=== PATIENT | female | born 1990 | race Hispanic/Latino ===

== ENCOUNTER 2017-04-25 17:42 | Emergency (ER) | payer MEDICAID, OTHER, SELFPAY ==
[2017-04-25 19:02] LABS: #Basophils 0.1 thou/uL (0.0-0.2); #Eosinphils 0.3 thou/uL (0.0-0.7); #Monocytes 0.5 thou/uL (0.11-0.59); #Neutrophils 4.1 thou/uL (1.40-6.50); %Basophils 0.8 % (0.0-1.0); %Eosinophils 4.7 % (0.0-10.0); %Lymphocytes 28.9 % (21.0-51.0); %Monocytes 6.7 % (0.0-10.0); Hemoglobin 10.6 g/dL (12.0-16.0); Mean Corpuscular Volume 87.3 fl (81.0-99.0); Mean Platelet Volume 6.4 fL (7.4-10.4); Platelet Count 373 thou/uL (130-400); RBC Distribution Width 15.1 % (11.5-14.5); Red Blood Cell (RBC) Count 3.78 mill/uL (4.20-5.40); White Blood Cell (WBC) Count 6.9 thou/uL (4.8-10.8)
[2017-04-25 19:09] LABS: BHCG - Serum Negative (NEGATIVE); Pregs Control Background? CLEAR/WHITE (CLR/WHITE); Pregs Control Bar Appear? YES (CONTROL BAR)
[2017-04-29 00:33] LABS: Chlamydia by PCR Not Detected (NotDetected); GC by PCR Not Detected (NotDetected)
== END 2017-04-25 22:46 | disposition home or self-care (01) ==
LOC: ERS 17:42
DX: N93.8 Other specified abnormal uterine and vaginal bleeding (principal); Z79.899 Other long term (current) drug therapy
CPT/HCPCS: 36415; 84703; 85025; 87491; 87591; 99284

== ENCOUNTER 2017-09-17 23:18 | Emergency (ER) | payer SELFPAY ==
[2017-09-18 00:01] LABS: #Basophils 0.1 thou/uL (0.0-0.2); #Eosinphils 0.3 thou/uL (0.0-0.7); #Lymphocytes 3.3 thou/uL (1.20-3.40); #Monocytes 0.5 thou/uL (0.11-0.59); #Neutrophils 3.7 thou/uL (1.40-6.50); %Basophils 1.1 % (0.0-1.0); %Eosinophils 3.6 % (0.0-10.0); %Monocytes 6.1 % (0.0-10.0); %Neutrophils 47.2 % (42.0-75.0); Hemoglobin 10.6 g/dL (12.0-16.0); Mean Corpuscular HGB CONC 32.1 g/dL (32.0-36.0); Mean Corpuscular Hemoglobin 28.3 pg (27.0-31.0); Mean Corpuscular Volume 88.3 fl (81.0-99.0); Mean Platelet Volume 6.9 fL (7.4-10.4); Platelet Count 302 thou/uL (130-400); RBC Distribution Width 14.2 % (11.5-14.5); Red Blood Cell (RBC) Count 3.76 mill/uL (4.20-5.40); White Blood Cell (WBC) Count 7.7 thou/uL (4.8-10.8)
[2017-09-18 01:28] LABS: Bilirubin Negative (Negative); Blood, Urine Negative (Negative); Clarity CLEAR (Clear); Glucose, Urine (Dipstick) Negative (Negative); Leukocyte Moderate (Negative); Nitrite Negative (Negative); Protein, Urine (Dipstick) Negative (Neg-Trace); Specific Gravity, Urine 1.015 (1.002-1.036); pH, Urine 7.5 (5.0-9.0)
[2017-09-18 01:29] LABS: Bacteria/HPF 2+ HPF (None Seen); Hyaline Casts/LPF 4-6 HYALINE CAST LPF (0-3 Hyaline); Pathc Cast-AUWi Flag 0.72 (0-2.49); RBC/HPF 0-3 HPF (0-3); Squamous Epithelial 0-3 HPF (0-3)
--- NOTE | 2017-09-18 09:17 | ULT ---
PRELIMINARY REPORT/[facility]/EMERGENTY AFTER-HOURS PROCEDURE US Uterus, Limited CLINICAL HISTORY: 26 years old, female; first trimester gestational age: 5w 3d; intermittent spotting: Lower abd or pelvic pain / cramping, constipation b-hcg [id number] TECHNIQUE: Real-time ultrasound of the maternal uterus (limited) with image documentation. COMPARISON: No relevant prior studies available. FINDINGS: Single intrauterine gestational sac with external length measurement of 6.7 mm corresponding to a ges tational age of 5 weeks, 3 days. A yolk sac is present but no pole or heart beat is yet i dentified. No subchorionic hemorrhage. No free pelvic fluid. Sonographically normal ovaries. IMPRESSION: Single intrauterine gestational sac with external length measurement of 6.7 mm corresponding to a ges tational age of 5 weeks, 3 days. A yolk sac is present but no pole or heart beat is yet i dentified. No subchorionic hemorrhage. Thank you for allowing us to participate in the care of your patient. Dictated and Authenticated by: Bryson Hodges MD 09/18/2017 1:08 AM Central Time ([place] & [place]) FINAL REPORT PELVIC ULTRASOUND: Transabdominal and endovaginal ultrasound performed. A small gestational sac with measurements indica ting 5 week 4 day gestational age identified. No evidence of pole or yolk sac. Maternal ovaries are identified and appear unremarkable. Color doppler with spectral analysis demonstrates blood flow to both ovaries. I am in agreement with the preliminary report. POS: CHANDRA
== END 2017-09-18 03:05 | disposition home or self-care (01) ==
LOC: ERS 23:18
DX: O20.0 Threatened abortion (principal); O23.41 Unspecified infection of urinary tract in pregnancy, first trimester; O99.341 Other mental disorders complicating pregnancy, first trimester; F41.9 Anxiety disorder, unspecified; F32.9 Major depressive disorder, single episode, unspecified; Z87.891 Personal history of nicotine dependence; Z3A.01 Less than 8 weeks gestation of pregnancy
CPT/HCPCS: 36415; 76856; 81003; 81015; 84702; 85025; 86850; 86900; 86901; 87077; 87086; 87186

== ENCOUNTER 2018-01-08 18:26 | Day surgery (SDC) | payer OTHER ==
[2018-01-08 19:52] VITALS: BP 129/81; TEMP 98.1; BMI 20.7
--- NOTE | 2018-01-09 00:32 | PRG ---
DATE OF SERVICE: 01/08/2018 PRIMARY OB: Clinic. CHIEF COMPLAINT: Abdominal pains. HISTORY OF PRESENT ILLNESS: The patient is a 27-year-old female with an intrauterine at 21 weeks who is presenting with lower abdominal pains and came for evaluation. On our initial co ntact, the patient reports that she is fairly comfortable. I shared with her the busyness of our ser vice at this time and I was just making sure she did need immediate attention and asked if it was oka y with her that I catch up with some of the patient needs for coming to attend to her specifically I did share with the patient. I did not want have the patient monitored for a period of time. The pat ml expressed that this was okay. However, shortly after leaving the room, the patient reported dennis t she had to leave to get back to her children and left AMA without being clearly evaluated. PHYSICAL EXAMINATION: VITAL SIGNS: Blood pressure 101/55, heart rate of 82, respiratory rate of 18, satting 100% on room a ir, temperature 98.5. heart tracing was briefly obtained and in the 140s. Tocometer that we w ere able to monitor had no contractions. The patient is of leaving AMA without formal evaluation by myself.
== END 2018-01-08 20:20 | disposition home or self-care (01) ==
LOC: L&D/OP 18:26
PROVIDERS: ATTEND Obstetrics & Gynecology
DX: O99.89 Other specified diseases and conditions complicating pregnancy, childbirth and the puerperium (principal); R10.30 Lower abdominal pain, unspecified; Z3A.21 21 weeks gestation of pregnancy
CPT/HCPCS: 99282

== ENCOUNTER 2018-05-10 02:41 | Inpatient (IN) | payer OTHER ==
[2018-05-10] MEDS ORDERED: NS / Oxytocin 40 units/1000ml 1,000 ML IV PRN (03:08)
[2018-05-10] MEDS ORDERED: Lidocaine 1% (PF) 30 ML VIAL SC PRN (03:08)
[2018-05-10] MEDS ORDERED: Ibuprofen 800 MG TAB PO PRN (03:08)
[2018-05-10] MEDS ORDERED: Acetaminophen 500 MG TAB PO PRN (03:08)
[2018-05-10] MEDS ORDERED: Promethazine HCl 25 MG/ML VIAL IM PRN ×2 (03:08→03:38)
[2018-05-10] MEDS ORDERED: Misoprostol 200 MCG TAB PR PRN (03:08)
[2018-05-10] MEDS ORDERED: Ondansetron PF 4 MG/2 ML Vial IVP PRN ×3 (03:08→07:24)
[2018-05-10] MEDS ORDERED: Butorphanol Tartrate 1 MG/ML VIAL SLOW IVP PRN (03:08)
[2018-05-10] MEDS: Lactated Ringer's 1,000 ML IV SCH ×2 (03:15→05:00)
[2018-05-10] MEDS ORDERED: Fentanyl 4 mcg/Bup 0.1% Cadd 100 ML ONE (03:29)
[2018-05-10 03:33] VITALS: BMI 19.8
[2018-05-10] MEDS ORDERED: Hydrocerin (Eucerin) Cream 120 gm Jar TOP PRN (03:38)
[2018-05-10] MEDS ORDERED: diphenhydrAMINE 50 MG/ML VIAL IVP PRN (03:38)
[2018-05-10] MEDS ORDERED: Naloxone HCl 0.4 mg/ml Vial IVP PRN ×2 (03:38)
[2018-05-10] MEDS ORDERED: Lactated Ringer's 500 ML IV PRN (03:38)
[2018-05-10] MEDS ORDERED: Acetaminophen 325 MG TAB PO PRN (03:38)
[2018-05-10] MEDS ORDERED: ePHEDrine/0.9% NaCl/PF SYRINGE 50 mg/10 ml SLOW IVP PRN (03:38)
[2018-05-10 03:42] LABS: ALT (SGPT) 50 U/L (8-55); AST (SGOT) 36 U/L (5-34); Albumin 3.2 g/dL (3.5-5.0); Alkaline Phosphatase 280 U/L (40-150); Anion Gap 16 mmol/L (10-20); BUN (Urea Nitrogen) 13 mg/dL (7.0-18.7); Bilirubin, Total 0.3 mg/dL (0.2-1.2); Calc. Creatinine Clearance 92 mL/min (70-130); Calcium 8.7 mg/dL (7.8-10.44); Carbon Dioxide 19 mmol/L (22-29); Chloride 107 mmol/L (98-107); Estimated GFR-MDRD Greater than 90; Globulin 3.8 g/dL (2.4-3.5); Glucose 84 mg/dL (70-105); Potassium 4.5 mmol/L (3.5-5.1); Sodium 137 mmol/L (136-145)
[2018-05-10] MEDS ORDERED: Communication Order-Pharmacy FS SCH (03:45)
[2018-05-10] MEDS ORDERED: Fentanyl 4 mcg/Bupivacaine 0.1% Cassette 100 ML EPIDURAL SCH (03:45)
[2018-05-10 03:46] LABS: Mean Corpuscular Hemoglobin 19.7 pg (27.0-31.0); Mean Platelet Volume 9.6 fL (7.4-10.4); Platelet Count 608 thou/uL (130-400); RBC Distribution Width 20.3 % (11.5-14.5); Red Blood Cell (RBC) Count 4.05 mill/uL (4.20-5.40); White Blood Cell (WBC) Count 13.5 thou/uL (4.8-10.8)
--- NOTE | 2018-05-10 03:46 | PDOC.FPROB ---
FMR OB H&P: HPI - History of Present Illness Chief Complaint: contractions History of Present Illness: 27 yo at 39.6wks presents in active labor with painful contractions. SROM in the ED ~1 hour prior. States she has had four vaginal deliveries prior without complications. She has not been to the clinic in 3-4months. FMR OB H&P: Current - Care : 4 Para: 43 Gestational age: 39.6 Due date: 05/11/18 FMR OB H&P: History - Past Medical History PMH: none - OB History OB History: 3 prior SVDs - Surgical History Sx History: none - Social History Social History: unknown FMR OB H&P: Medications - Current Home Medications: Medication Instructions Recorded Confirmed Type No122/Iron/Folic Acid 1 tab PO DAILY 05/10/18 05/10/18 History [ Multi Tablet] Allergies/Adverse Reactions: Allergies Allergy/AdvReac Type Severity Reaction Status Date / Time No Known Allergies Allergy Verified 01/08/18 19:53 FMR OB H&P: ROS - Review of Systems General: denies: fever/chills, weight/appetite/sleep changes ENT: denies: nasal congestion, rhinorrhea Cardiovascular: denies: chest pain, palpitation Respiratory: denies: cough Gastrointestinal: denies: abdominal pain, indigestion Genitourinary (Female): reports: vaginal pain, contractions, vaginal pressure. denies: incontinence, dysuria Musculoskeletal: reports: pain Neurologic: denies: numbness, syncope Integumentary: denies: itching, rash Breast: denies: lumps, bumps Endocrine: denies: cold intolerance, heat intolerance Psychological: denies: depression, anxiety FMR OB H&P: Physical Exam - Physical Exam General: other (painful contractions) HEENT: normocephalic and atraumatic, PERRLA, MMM, grossly normal hearing Neck: supple, trachea midline General: other (no increased work of breathing) Abdomen: gravid Musculoskeletal: normal gait and station Skin: good tugor Psychiatric: intact recent and remote memory - Pelvic Exam Vulva: normal hair distribution SVE: 6/80/0 Presentation: vertex FMR OB H&P: Results - Labs Lab results: Laboratory Results - last 24 hr 05/10/18 03:12 Sodium 137 Potassium 4.5 Chloride 107 Carbon Dioxide 19 L Anion Gap 16 BUN 13 Creatinine 0.70 Estimated GFR (MDRD) Greater than 90 Glucose 84 Calcium 8.7 Total Bilirubin 0.3 AST 36 H ALT 50 Alkaline Phosphatase 280 H Serum Total Protein 7.0 Albumin 3.2 L Globulin 3.8 H Albumin/Globulin Ratio 0.8 L FMR OB H&P: A/P - Problem List (1) Term Current Visit: Yes Status: Acute Code(s): Z34.80 - ENCOUNTER FOR SUPRVSN OF NORMAL , UNSP TRIMESTER (2) Poor patient attendance of care Current Visit: Yes Status: Acute Code(s): O09.30 - SUPRVSN OF PREG W INSUFFICIENT ANTENAT CARE, UNSP TRIMESTER Discussion: Date/Time: 05/10/18 0343 27 yo @ 39.6wks by unknown dating presents to L&D with painful contractions admitted for active labor. #sIUP #active labor #poor prenantal care -Will admit to L&D. Stat labs ordered. Pt desires epidural. Anesthesia consulted. Cervical checks q2h or more frequent if indicated. Unknown GBS status. This H&P was discussed with Dr. Hector who agrees with the above documentation and plan. Addendum - Attending - Attending Attestation Date/Time: 05/10/18 3783 I personally evaluated the patient and discussed the management with Dr. Clements. I agree with the History, Examination, Assessment and Plan documented above.
[2018-05-10 04:01] LABS: HIV (1/2) Antibody/Antigen Non-Reactive (NonReactive); HIV 1/2 INDEX 0.11 S/CO (<1.00); Hep B Surf Ag Non-Reactive S/CO (NonReactive)
[2018-05-10] MEDS ORDERED: Lidocaine 1.5% w/Epi 1:200K 30 ML VIAL (Epid Use) ONE (04:01)
[2018-05-10 04:44] LABS: Syphilis Antibody Nonreactive (Nonreactive); Syphilis Antibody Index 0.09 S/CO (<1.00 Non-Reactive)
[2018-05-10 05:08] LABS: Amphetamine Not Detected (NotDetected); Barbiturates Screen Not Detected (NotDetected); Benzodiazepine Screen Not Detected (NotDetected); Cocaine Metabolite Screen Not Detected (NotDetected); Medtox Control Line Valid? VALID (VALID); Medtox Reader # READER 4; Methadone Not Detected (NotDetected); Methamphetamine Not Detected (NotDetected); Opiate Screen Not Detected (NotDetected); Oxycodone Screen Not Detected (NotDetected); Phencyclidine (PCP) Not Detected (NotDetected); THC/Cannabinoid Screen Not Detected (NotDetected); Tricyclic Screen Not Detected (NotDetected)
--- NOTE | 2018-05-10 06:29 | PDOC.OPDEL ---
OB Operative/Delivery Note Delivery Dr/Surgeon: Tyree Hall Assist: Attending: Krunal Pre-Delivery Diagnosis: active labor Procedure/Post Delivery Dx: spontaneous vaginal delivery Weeks gestation: 39 (39.6) Anesthesia: epidural - Findings A Sex: male - 1 min: 9 - 5 min: 9 - Additional Findings/Plan Placenta delivered: spontaneous Repaired Obstetrical Laceration: none Estimated blood loss: 208ml Compilations/Other Findings: Delivering Physician: Tyree Hall Attending: Krunal Procedure: Spontaneous Vaginal Delivery Anesthesia: epidural EBL:208ml Pre-op Diagnosis: 1. Term intrauterine in labor Post-op Diagnosis: 1. Term intrauterine , delivered Indications: A 27y/o female presents in active labor. Delivery Note: This is 27yo F @ 39.6wks who delivered a viable M infant at 0548. Following an uneventful antepartum course, a vigorous male was delivered over an intact perineum in the occipitoanterior position. Anterior Shoulder and then remainder of the body delivered. Nuchal cord X1. The head was held down and mouth and nares were bulb suctioned. Cord clamped and cut and cord blood collected. Placenta delivered intact with a 3 vessel cord noted. Fundal massage was performed and the fundus was firm. The cervix and vagina were inspected and found to be free of lacerations. Infant went to nursery in good condition for routine care. Apgars were 9/9 at 1 & 5 minutes, respectively. Patient tolerated delivery well and went to after routine recovery/care. Post delivery plan: routine recovery Addendum - Attending - Attending Attestation Date/Time: 05/11/182009 I was present for the entire delivery. Dee
[2018-05-10] MEDS ORDERED: Lanolin Ointment 7 GM TUBE TOP PRN (07:24)
[2018-05-10] MEDS ORDERED: Bisacodyl 10 MG SUPP PR PRN (07:24)
[2018-05-10] MEDS ORDERED: Methylergonovine 0.2 MG/ML VIAL IM PRN (07:24)
[2018-05-10] MEDS ORDERED: Adacel (T-DAP) 0.5 ML SYRINGE IM ONE (07:24)
[2018-05-10] MEDS ORDERED: Misoprostol 200 MCG TAB VAG PRN (07:24)
[2018-05-10] MEDS ORDERED: Preparation H Ointment 28 GM TUBE PR PRN (07:24)
[2018-05-10] MEDS ORDERED: NS / Oxytocin 40 units/1000ml 1,000 ML IV SCH (07:24)
[2018-05-10] MEDS ORDERED: Benzocaine/Menthol 20-0.5% 60 ML CAN TOP PRN (07:24)
[2018-05-10] MEDS ORDERED: Milk Of Magnesia 30 ML UDCUP PO PRN (07:24)
[2018-05-10] MEDS ORDERED: Methylergonovine 0.2 MG TAB PO PRN (07:24)
[2018-05-10] MEDS: Ferrous Sulfate 325 MG TAB PO SCH ×2 (10:16→17:11)
[2018-05-10] MEDS: Docusate Calcium (SURFAK) 240 MG CAP PO SCH ×2 (10:16→21:35)
[2018-05-10] MEDS: Prenatal Vitamin 1 TAB PO SCH (10:16)
[2018-05-10] MEDS: Ibuprofen 800 MG TAB PO SCH ×2 (10:21→17:11)
[2018-05-10] MEDS ORDERED: Bupivacaine HCl 0.5%/Epinephrine 1:200,000/PF 30 ml Vial ONE (11:11)
[2018-05-10 12:49] LABS: Hemoglobin 7.8 g/dL (12.0-16.0); Mean Corpuscular HGB CONC 29.9 g/dL (32.0-36.0); Mean Corpuscular Hemoglobin 20.5 pg (27.0-31.0); Mean Corpuscular Volume 68.6 fL (78.0-98.0); Mean Platelet Volume 9.6 fL (7.4-10.4); Platelet Count 537 thou/uL (130-400); RBC Distribution Width 20.3 % (11.5-14.5); Red Blood Cell (RBC) Count 3.82 mill/uL (4.20-5.40)
[2018-05-10 18:53] LABS: Hemoglobin 7.6 g/dL (12.0-16.0); Mean Corpuscular HGB CONC 28.6 g/dL (32.0-36.0); Mean Corpuscular Hemoglobin 19.6 pg (27.0-31.0); Mean Corpuscular Volume 68.5 fL (78.0-98.0); Mean Platelet Volume 9.5 fL (7.4-10.4); Platelet Count 530 thou/uL (130-400); RBC Distribution Width 20.4 % (11.5-14.5); Red Blood Cell (RBC) Count 3.88 mill/uL (4.20-5.40); White Blood Cell (WBC) Count 22.2 thou/uL (4.8-10.8)
[2018-05-11] MEDS: Ibuprofen 800 MG TAB PO SCH ×3 (01:13→15:21)
--- NOTE | 2018-05-11 06:02 | PDOC.PP ---
Post Progress Note Post Day #: 1 Subjective: 27 yoG4 now P4 PP day one sp . Pt without complaints. Scant lochia, urinating, ambulating, eating and drinking well. PO intake tolerated: yes Flatus: yes Ambulation: yes Vital Signs (12 hours) Temp Pulse Resp BP Pulse Ox 05/11/18 03:45 98.4 F 77 14 109/62 98 05/10/18 23:40 98.6 F 61 18 121/56 L 98 05/10/18 20:00 98.7 F 80 18 124/66 Weight Weight 47.627 kg - Physical Examination General: NAD Cardiovascular: no m/r/g, RRR Respiratory: clear to auscultation bilaterally, non-labored breathing Abdominal: + bowel sounds, lochia, no distention, appropriately TTP Extremities: negative homans (B) Neurological: no gross focal deficits Psychiatric: normal affect Result Diagrams: 05/10/18 18:17 05/10/18 03:12 Additional Labs: Post Labs Blood Type O POSITIVE 05/10/18 03:12 Hep Bs Antigen Non-Reactive S/CO (NonReactive) 05/10/18 03:12 (1) Term delivered Code(s): O80 - ENCOUNTER FOR FULL-TERM UNCOMPLICATED DELIVERY Status: Acute (2) Poor patient attendance of care Code(s): O09.30 - SUPRVSN OF PREG W INSUFFICIENT ANTENAT CARE, UNSP TRIMESTER Status: Acute - Assessment/Plan 1) TIUP, delivered - pt doing well w/o complaints - cont routine PP care - elaina dc home tomorrow after 48 hr obs - consult CM 2) Poor PNC - UDS neg - GBS unknown, obs baby 48 hrs for s/s infection - CM consulted Dispo: Stable, likely DC to home tomorrow
[2018-05-11] MEDS: Prenatal Vitamin 1 TAB PO SCH (08:11)
[2018-05-11] MEDS: Docusate Calcium (SURFAK) 240 MG CAP PO SCH (08:11)
[2018-05-11] MEDS: Ferrous Sulfate 325 MG TAB PO SCH (08:11)
[2018-05-11 09:04] VITALS: BP 120/70; TEMP 98.8
== END 2018-05-11 16:40 | disposition home or self-care (01) | DRG 807 ==
LOC: L&D/OP 02:41 → L&D 03:27 → 3SW 08:58
PROVIDERS: ADMIT Obstetrics & Gynecology; ATTEND Obstetrics & Gynecology
PROC: 10E0XZZ Delivery of Products of Conception, External Approach (ICD-10-PCS; principal; 2018-05-10)
DX: O69.81X0 Labor and delivery complicated by cord around neck, without compression, not applicable or unspecified (principal); Z37.0 Single live birth; Z3A.39 39 weeks gestation of pregnancy
CPT/HCPCS: 36415; 51702; 80053; 80306; 80307; 85027; 86762; 86780; 86850; 86900; 86901; 87340; 87389; 99285; J0670

== ENCOUNTER 2019-10-30 09:57 | Inpatient (IN) | payer OTHER ==
[2019-10-30] MEDS ORDERED: Methylergonovine 0.2 MG/ML VIAL IM PRN (10:14)
[2019-10-30] MEDS ORDERED: Ondansetron PF 4 MG/2 ML Vial IVP PRN ×3 (10:14→18:25)
[2019-10-30] MEDS ORDERED: Misoprostol 200 MCG TAB PR PRN (10:14)
[2019-10-30] MEDS ORDERED: Lidocaine 1% (PF) 30 ML VIAL SC PRN (10:14)
[2019-10-30] MEDS ORDERED: Carboprost 250 MCG/ML AMP IM PRN (10:14)
[2019-10-30] MEDS ORDERED: Diphenoxylate HCl/Atropine Tablet PO PRN ×2 (10:14)
[2019-10-30] MEDS ORDERED: Promethazine HCl 25 MG/ML VIAL IM PRN ×3 (10:14→18:25)
[2019-10-30] MEDS ORDERED: Ibuprofen 800 MG TAB PO PRN ×2 (10:14→16:31)
[2019-10-30] MEDS ORDERED: hydrALAZINE 20 MG/ML VIAL SLOW IVP PRN ×2 (10:14→18:25)
[2019-10-30] MEDS ORDERED: Penicillin G Potassium 5 MILL.UNITS VIAL ONE ×2 (10:21→10:22)
[2019-10-30] MEDS: Lactated Ringer's 1,000 ML IV SCH ×3 (10:25→13:20)
[2019-10-30] MEDS ORDERED: Fentanyl 4 mcg/Bup 0.1% Cadd 100 ML ONE (10:32)
[2019-10-30 10:48] LABS: Hemoglobin 8.5 g/dL (12.0-16.0); Mean Corpuscular HGB CONC 29.7 g/dL (32.0-36.0); Mean Corpuscular Hemoglobin 21.1 pg (27.0-31.0); Mean Corpuscular Volume 71.1 fL (78.0-98.0); Mean Platelet Volume 8.2 fL (7.4-10.4); Platelet Count 457 thou/uL (130-400); RBC Distribution Width 20.1 % (11.5-14.5); Red Blood Cell (RBC) Count 4.01 mill/uL (4.20-5.40); White Blood Cell (WBC) Count 13.1 thou/uL (4.8-10.8)
--- NOTE | 2019-10-30 11:00 | PDOC.FPROB ---
FMR OB H&P: HPI - History of Present Illness Chief Complaint: contractions Indentification: 28yo @ 40.2 History of Present Illness: 28yo @ 40.2 by 29.1wk sono complicated by incomplete care presents for ctx. Onset of ctx last night at 2000. Spaced out and not very intense. This morning @ ~0300 had increased intensity and frequency of ctx to every 1-3min. Change in vaginal discharge with increased amount and pink- tinged. No LOF. Endorses good movement. No COVID-19 contacts, no SOB, fever/chills. Last OB visit at [facility] was at 31.5wks, multiple phone calls and never came in for further appointment. No GBS testing, no documented history of GBS in prior and patient unaware of ever being told she was GBS positive. Primary Care Physician: KARTIK Benavides FMR OB H&P: Current - Care : 6 Para: 2214 Gestational age: 40.2 Due date: 10/28/19 Dating Criteria: 29.1wk sono Course/Complications: Incomplete PNC, h/o CPS involvement with prior child. Anemia of , h/o child with club foot, concern for current . 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 Does not have custody of previous child in 2013, CPS involved. h/o THC use. Denies EtOH and tob. - Family History Family History: Maternal and paternal h/o DMII and HTN. No known OB family history. FMR OB H&P: Medications - Current Home Medications: Medication Instructions Recorded Confirmed Type No122/Iron/Folic Acid 1 tab PO DAILY 01/19/19 01/19/19 History [ Multi Tablet] Ferrous Sulfate [Feosol] 325 mg PO BID-WM #60 tab 05/11/18 Rx Ibuprofen [Motrin] 800 mg PO Q8HR #10 tab 05/11/18 Rx Allergies/Adverse Reactions: Allergies Allergy/AdvReac Type Severity Reaction Status Date / Time No Known Allergies Allergy Verified 07/10/19 21:21 FMR OB H&P: ROS - Review of Systems General: denies: fever/chills, weight/appetite/sleep changes Eyes: denies: vision changes, double vision, scotomas, floaters ENT: denies: nasal congestion, rhinorrhea Cardiovascular: denies: chest pain Respiratory: denies: cough, congestion, shortness of breath Gastrointestinal: denies: abdominal pain, nausea, vomiting Genitourinary (Female): reports: vaginal discharge, contractions. denies: vaginal bleeding Musculoskeletal: reports: pain (with ctx) Neurologic: denies: weakness Integumentary: denies: rash FMR OB H&P: Vital Signs - Maternal Vital signs: BP 128/78, HR 93, O2 99% RA - Heart Tones Baseline: 140 Variability: moderate Acceleration: present Deceleration: absent Category: category 1 [place] contractions every: 2-3min FMR OB H&P: Physical Exam - Physical Exam General: NAD, awake, alert and oriented, other (painful ctx) HEENT: PERRLA, MMM Neck: supple, trachea midline Heart: RRR, normal S1/S2, no murmurs/rubs/gallops General: CTAB, no respiratory distress, good air movement, no rales/rhonchi, no wheezing Abdomen: soft, gravid, non-tender, bowel sound present Neurological: no focal deficit Psychiatric: intact recent and remote memory, good judgement and insight, normal mood and affect - Pelvic Exam SVE: FMR OB H&P: Results - Labs Lab results: Laboratory Results - last 24 hr 10/30/19 10:29 WBC 13.1 H RBC 4.01 L Hgb 8.5 L Hct 28.5 L MCV 71.1 L MCH 21.1 L MCHC 29.7 L RDW 20.1 H Plt Count 457 H MPV 8.2 FMR OB H&P: A/P - Problem List (1) Term Current Visit: Yes Status: Acute Code(s): Z34.80 - ENCOUNTER FOR SUPRVSN OF NORMAL , UNSP TRIMESTER (2) Iron deficiency anemia Current Visit: Yes Status: Acute Code(s): D50.9 - IRON DEFICIENCY ANEMIA, UNSPECIFIED (3) Poor patient attendance of care Current Visit: Yes Status: Acute Code(s): O09.30 - SUPRVSN OF PREG W INSUFFICIENT ANTENAT CARE, UNSP TRIMESTER Disposition: 28yo @ 40.2 by 29.1wk sono complicated by incomplete care presents for ctx, admitted for active labor #SIUP, term - 40.2 by 29.1wk sono - presents for painful, regular ctx. No LOF, passed mucous plug - SVE at presentation - Cat 1 strip with ctx q2-4min - Desires epidural, anesthesia consulted - Admit to L&D - Intermittent, and incomplete PNC. H/o CPS case in prior child, Case management consulted for . IOB labs unremarkable. - expectant management #Iron Def anemia - Hb 7.9 at IOB labs - will need to monitor PP bleeding, PP H/H - cont home iron #Incomplete and poor PNC - Multiple attempts to reach patient per clinic records - Case management consulted #Concern for club foot on sono - previous child with club foot s/p repair - was sent to [facility] but did not go to appointment - will need to monitor baby #GBS unknown - no known history of GBS in prior - Given 1 dose Geovanny PCP: KARTIK Benavides IVF: LR @ 125cc/hr Diet: Ice chips Dispo: Admit to L&D, epidural, expectant management. Discussion: Date/Time: 10/30/19 1055 This H&P was discussed with Dr. Be who agrees with the above documentation and plan. Addendum - Attending - Attending Attestation Date/Time: 10/30/19 1333 I personally evaluated the patient and discussed the management with Dr. Banegas I agree with the History, Examination, Assessment and Plan documented above with any addition or exceptions noted below. 28 yo female at 40.2 wks by 29.1 wk sono presents in active labor Patient with incomplete and poor care. Reports continued contractions since last night. No ROM or VB. +FM. - sIUP in active labor: Cephalic. Cat 1 tracing. OB record reviewed by limited. No follow up growth. GBS unknown. Continue to monitoring closely. Epidural as desires. - GBS unknown: No prior children with infections. No prior positive swabs or urine cultures. Discussed risk. Patient request ppx PNC. - iron def anemia: Monitor closely. Continue PO iron. Consider iron infusion prior to d/c. - fam hx of club foot: Unsure of club foot on anatomy. + fam hx in 2 close relatives. Repeat SVE in 2 hours FHT q 30 min to 60 min PCN q 4 hours ABrayMD
[2019-10-30] MEDS ORDERED: Naloxone HCl 0.4 mg/ml Vial IVP PRN ×2 (11:16)
[2019-10-30] MEDS ORDERED: diphenhydrAMINE 50 MG/ML VIAL IVP PRN (11:16)
[2019-10-30] MEDS ORDERED: Acetaminophen 325 MG TAB PO PRN (11:16)
[2019-10-30] MEDS ORDERED: Lactated Ringer's 500 ML IV PRN (11:16)
[2019-10-30] MEDS ORDERED: EPHEDRINE 25 MG/5 ML SYRINGE SLOW IVP PRN (11:16)
[2019-10-30 11:25] LABS: HBSAg Index 0.14 S/CO (0-0.99); Hep B Surf Ag Non-Reactive S/CO (NonReactive)
[2019-10-30 11:28] LABS: Syphilis Antibody Nonreactive (Nonreactive); Syphilis Antibody Index 0.13 S/CO (<1.00 Non-Reactive)
[2019-10-30] MEDS ORDERED: Fentanyl 4 mcg/Bupivacaine 0.1% Cassette 100 ML EPIDURAL SCH (11:30)
[2019-10-30] MEDS ORDERED: Communication Order-Pharmacy FS SCH (11:30)
[2019-10-30 12:17] LABS: Amphetamine Not Detected (NotDetected); Barbiturates Screen Not Detected (NotDetected); Benzodiazepine Screen Not Detected (NotDetected); Cocaine Metabolite Screen Not Detected (NotDetected); Medtox Control Line Valid? VALID (VALID); Medtox Reader # READER 1; Methadone Not Detected (NotDetected); Methamphetamine Not Detected (NotDetected); Opiate Screen Not Detected (NotDetected); Oxycodone Screen Not Detected (NotDetected); Phencyclidine (PCP) Not Detected (NotDetected); THC/Cannabinoid Screen Not Detected (NotDetected); Tricyclic Screen Not Detected (NotDetected)
[2019-10-30] MEDS ORDERED: Bupivacaine 0.25% HCL 30 ML VIAL ONE (12:43)
--- NOTE | 2019-10-30 13:16 | PDOC.LDPN ---
Labor & Delivery Progress Note - Subjective Subjective: comfortable - Objective Vital signs reviewed and normal: yes General: NAD, resting Dilation: 8/90/0 FHT: category 1, variability present [place] contractions every: 3-4 Plan: continue plan of care -: 28yo @ 40.2 by 29.1wk sono complicated by incomplete care presents for ctx. #SIUP, term - 40.2 by 29.1wk sono - presents for painful, regular ctx. No LOF, passed mucous plug - Intermittent, and incomplete PNC. H/o CPS case in prior child, Case management consulted for . IOB labs unremarkable. - / @ 1045 - /0 @ 1140, intact - Cat I/II strip with ctx q2-4min, @1300 3 recurrent late decels, lasting 2 min each going down 10-15 beats, resolved with repositioning and IVF bolus, returned to cat I. - epidural - expectant management #Iron Def anemia - Hb 7.9 at IOB labs - will need to monitor PP bleeding, PP H/H - cont home iron #Incomplete and poor PNC - Multiple attempts to reach patient per clinic records - Case management consulted #Concern for club foot on sono - previous child with club foot s/p repair - was sent to [facility] but did not go to appointment - will need to monitor baby #GBS unknown - no known history of GBS in prior - Given 1 dose Geovanny PCP: KARTIK Benavides IVF: LR @ 125cc/hr Diet: Ice chips Dispo: Continue with expectant management. Will consider AROM at next check. Addendum - Attending - Attending Attestation Date/Time: 10/30/19 9972 I personally evaluated the patient and discussed the management with Dr. Abraham I agree with the History, Examination, Assessment and Plan documented above with any addition or exceptions noted below. Patient now 8 cm and progressing appropriately. s/p epidural and PCN. Cat 1 with brief cat 2. Occasional early decel. Continue expectant management. Active with AROM as needed. Repeat exam as indicated or in 2 hours Continue to monitor tracing closely. Ivan
[2019-10-30] MEDS ORDERED: Penicillin G 2.5 MILL.units 50 ML ONE (13:49)
[2019-10-30 13:59] VITALS: BMI 26.0
--- NOTE | 2019-10-30 14:43 | PDOC.LDPN ---
Labor & Delivery Progress Note - Subjective Subjective: comfortable, no concerns - Objective Vital signs reviewed and normal: yes General: NAD Uterine fundus: non tender SVE: FHT: category 1, category 2 (Some minimal variability, improved with scalp stimulation) [place] contractions every: 3 minutes Procedures: AROM AROM: clear fluid Plan: continue plan of care -: 28yo @ 40.2 by 29.1wk sono complicated by incomplete care presents for ctx. #SIUP, term - 40.2 by 29.1wk sono - presents for painful, regular ctx. No LOF, passed mucous plug - Intermittent, and incomplete PNC. H/o CPS case in prior child, Case management consulted for . IOB labs unremarkable. - / @ 1045 - @ 1140, intact - @1430, AROM w/ clear fluid - Cat I/II strip with ctx q2-4min, improved with scalp stimulation after AROM - epidural - expectant management #Iron Def anemia - Hb 7.9 at IOB labs - will need to monitor PP bleeding, PP H/H - cont home iron #Incomplete and poor PNC - Multiple attempts to reach patient per clinic records - Case management consulted #Concern for club foot on sono - previous child with club foot s/p repair - was sent to [facility] but did not go to appointment - will need to monitor baby #GBS unknown - no known history of GBS in prior - Given 1 dose Geovanny PCP: KARTIK Benavides IVF: LR @ 125cc/hr Diet: Ice chips Dispo: Continue with expectant management. Addendum - Attending - Attending Attestation Date/Time: 10/30/19 2342 I personally evaluated the patient and discussed the management with Dr. Marquez I agree with the History, Examination, Assessment and Plan documented above with any addition or exceptions noted below. Now AROM with clear fluid. 9 cm. Preparing for soon. Continue PCN until delivery. Ivan
[2019-10-30] MEDS ORDERED: Milk Of Magnesia 30 ML UDCUP PO PRN ×2 (16:22→18:25)
[2019-10-30] MEDS ORDERED: Bisacodyl 10 MG SUPP PR PRN ×2 (16:22→18:25)
[2019-10-30] MEDS ORDERED: NS / Oxytocin 40 units/1000ml 1,000 ML IV SCH ×2 (16:30→18:25)
[2019-10-30] MEDS: NS / Oxytocin 40 units/1000ml 1,000 ML IV PRN ×2 (16:41→16:54)
[2019-10-30] MEDS ORDERED: Ferrous Sulfate 325 MG TAB PO SCH ×2 (17:00→19:15)
[2019-10-30] MEDS ORDERED: Pen G 2.5 MILL.UNITS/50 ML BAG IVPB SCH (18:00)
[2019-10-30] MEDS ORDERED: diphenhydrAMINE 25 MG CAP PO PRN (18:25)
[2019-10-30] MEDS ORDERED: Benzocaine-Menthol 82.5 ML CAN TOP PRN (18:25)
[2019-10-30] MEDS ORDERED: Lanolin Ointment 7 GM TUBE TOP PRN (18:25)
[2019-10-30] MEDS ORDERED: Preparation H Ointment 28 GM TUBE PR PRN (18:25)
--- NOTE | 2019-10-30 18:25 | PDOC.OPDEL ---
OB Operative/Delivery Note Delivery Dr/Surgeon: Jimmy/Lonnie/Haile Pre-Delivery Diagnosis: active labor Procedure/Post Delivery Dx: spontaneous vaginal delivery Weeks gestation: 40 (40.2) Anesthesia: epidural - Additional Findings/Plan Placenta delivered: spontaneous Repaired Obstetrical Laceration: none Estimated blood loss: 155 mL Compilations/Other Findings: Delivering Physician: Dr. Marquez and Dr. Fleming Attending Dr. Be Procedure: Spontaneous Vaginal Delivery Anesthesia: epidural EBL: 155 ml Pre-op Diagnosis: 1. Term intrauterine in labor Post-op Diagnosis: 1. Term intrauterine , delivered 2. same as above Indications: A 28y/o female presents in active labor Delivery Note: This is 28yo F -> 5 @ 40.2 wks who delivered a viable M at 1609 on 10/30/19. Following an uneventful antepartum course, a vigorous M was delivered over an intact perineum in the occipitoanterior position. Anterior Shoulder and then remainder of the body delivered. No nuchal cord. The baby was placed on mom's belly and mouth and nares were bulb suctioned. After delayed cord clamping, cord clamped and cut and cord blood collected. Placenta delivered intact with a 3 vessel cord noted. Fundal massage was performed and the fundus was firm. The cervix and vagina were inspected and found to be free of lacerations, with a periurethral abrasion that was hemostatic. Infant went to nursery in good condition for routine care. Apgars were 8/9 at 1 & 5 minutes, respectively. Patient tolerated delivery well and went to after routine recovery/care. Post delivery plan: routine recovery
[2019-10-30] MEDS ORDERED: Docusate Calcium (SURFAK) 240 MG CAP PO SCH (21:00)
[2019-10-30] MEDS: Docusate Calcium (SURFAK) 240 MG CAP PO SCH (22:34)
[2019-10-30] MEDS: Ibuprofen 800 MG TAB PO SCH (22:34)
[2019-10-31] MEDS: Ibuprofen 800 MG TAB PO SCH ×2 (05:31→14:43)
--- NOTE | 2019-10-31 05:58 | PDOC.PP ---
Post Progress Note Post Day #: 1 Subjective: Patient has no acute concerns with no acute events overnight. She says pain is minimal-just light cramping, bleeding is similar to the last days of a period. She has been ambulating and voiding with no problems. She has not had a BM yet but does not feel constipated. She is and used a bottle last night 2/2 poor latch and fatigue. She plans on at home. Patient wants to leave today to be home with 1 yr old and other children. PO intake tolerated: yes Flatus: yes Ambulation: yes Vital Signs (12 hours) Temp Pulse Resp BP Pulse Ox 10/30/19 20:00 99 10/30/19 18:40 99.1 F 91 18 113/59 L 98 Weight Weight 62.596 kg - Physical Examination General: NAD Cardiovascular: no m/r/g, RRR Respiratory: clear to auscultation bilaterally, non-labored breathing Abdominal: + bowel sounds, lochia, no distention, appropriately TTP Neurological: no gross focal deficits Psychiatric: A&Ox3, normal affect Result Diagrams: 10/31/19 05:42 Additional Labs: Post Labs Blood Type O POSITIVE 10/30/19 10:29 Hep Bs Antigen Non-Reactive S/CO (NonReactive) 10/30/19 10:29 - Assessment/Plan 28F who delivered TGA male at 40.2 weeks via uncomplicated with no lacerations pp day 1. Term PP Day 1 - no complications in delivery - continue to monitor bleeding - routine pp care - Discussed breast feeding, consulted - encouraged ambulation - case management consulted Dispo: routine pp care, patient wants to leave today and we had discussion that baby needs meconium to be collected and sent off and a 24 hr bili must be collected and be normal at 4 pm. Also discussed that CM needs to come talk to patient 2/2 inconsistent care to ensure complete care. If all 3 of these happen, patient can be discharged this evening. D/w patient that it would likely be at least 5 pm before possible d/c. If not today, d/c tomorrow.
[2019-10-31 06:04] LABS: Hemoglobin 7.2 g/dL (12.0-16.0); Mean Corpuscular HGB CONC 29.4 g/dL (32.0-36.0); Mean Corpuscular Hemoglobin 20.8 pg (27.0-31.0); Mean Corpuscular Volume 70.6 fL (78.0-98.0); Mean Platelet Volume 8.5 fL (7.4-10.4); Platelet Count 448 thou/uL (130-400); RBC Distribution Width 20.1 % (11.5-14.5); Red Blood Cell (RBC) Count 3.45 mill/uL (4.20-5.40); White Blood Cell (WBC) Count 17.4 thou/uL (4.8-10.8)
[2019-10-31] MEDS ORDERED: Polyethylene Glycol 3350 17 GM Packet PO SCH (09:00)
[2019-10-31] MEDS ORDERED: Prenatal Vitamin 1 TAB PO SCH (09:00)
[2019-10-31] MEDS ORDERED: Adacel (T-DAP) 0.5 ML SYRINGE IM ONE (09:00)
[2019-10-31] MEDS: Docusate Calcium (SURFAK) 240 MG CAP PO SCH (09:58)
[2019-10-31] MEDS: Ferrous Sulfate 325 MG TAB PO SCH ×2 (09:59→17:52)
[2019-10-31 17:05] VITALS: BP 105/56; TEMP 98.3
== END 2019-10-31 19:30 | disposition home or self-care (01) | DRG 807 ==
LOC: L&D/OP 09:57 → L&D 14:56 → 3SW 18:40
PROVIDERS: ADMIT Student in an Organized Health Care Education/Training Program; ATTEND Student in an Organized Health Care Education/Training Program
PROC: 10E0XZZ Delivery of Products of Conception, External Approach (ICD-10-PCS; principal; 2019-10-30)
PROC: 10907ZC Drainage of Amniotic Fluid, Therapeutic from Products of Conception, Via Natural or Artificial Opening (ICD-10-PCS; 2019-10-30)
DX: O99.02 Anemia complicating childbirth (principal); Z37.0 Single live birth; Z3A.40 40 weeks gestation of pregnancy; D50.9 Iron deficiency anemia, unspecified; O76 Abnormality in fetal heart rate and rhythm complicating labor and delivery
CPT/HCPCS: 36415; 80306; 85027; 86780; 86850; 86900; 86901; 87340; J2405; J2540; S0020

== ENCOUNTER 2023-03-18 19:20 | Emergency (ER) | payer MEDICAID, SELFPAY ==
[2023-03-18] MEDS ORDERED: Ondansetron ODT 4 MG TAB ONE (20:18)
[2023-03-18] MEDS ORDERED: Ketorolac Tromethamine 30 MG/ML VIAL ONE (20:18)
[2023-03-18 20:32] LABS: Bacteria/HPF 4+ HPF (None Seen); Bilirubin Negative (Negative); Blood, Urine Negative (Negative); CAUTI Indications for Culture Dysuria,urgency,freq; Clarity Clear (Clear); Glucose, Urine (Dipstick) Normal (Negative); Ketone, Urine Negative (Negative); Leukocyte 75 Leu/uL (Negative); Mucous/LPF Rare LPF (<2+); Nitrite 2+ (Negative); Protein, Urine (Dipstick) 20 mg/dL (Neg-Trace); RBC/HPF 0-3 HPF (0-3); Specific Gravity, Urine 1.031 (1.002-1.036); Urobilinogen Normal mg/dL (Less than 2); WBC/HPF 21-50 HPF (0-3)
[2023-03-18 20:34] LABS: Pregnancy Test - Urine (BHCG) Negative (Negative); Pregu Control Background? CLEAR/WHITE (CLR/WHITE); Pregu Control Bar Appear? YES (CONTROL BAR); Specific Gravity 1.031 (1.002-1.036)
[2023-03-18 20:36] LABS: Urine Culture Reflex Yes Yes
[2023-03-18] MEDS ORDERED: cefTRIAXone (ROCEPHIN) 1 GM VIAL ONE (20:49)
[2023-03-18] MEDS ORDERED: Sodium Chloride 0.9% 100 ML ONE (20:49)
== END 2023-03-18 21:38 | disposition home or self-care (01) ==
LOC: ERS 19:20
DX: N10 Acute pyelonephritis (principal); N39.0 Urinary tract infection, site not specified; F17.290 Nicotine dependence, other tobacco product, uncomplicated; Z20.822 Contact with and (suspected) exposure to COVID-19
CPT/HCPCS: 81001; 81025; 87077; 87086; 87186; 87635; 87804; 96365; 96372; J0696; J1885; J3490; Q0162

== ENCOUNTER 2023-09-01 07:38 | Emergency (ER) | payer SELFPAY ==
[2023-09-01] MEDS ORDERED: Boostrix 0.5 ML (Tdap) VIAL (>/=7 yrs of age) ONE (08:30)
[2023-09-01 08:52] LABS: #Basophils Less than 0.03 10x3/uL (0.0-0.2); #Eosinphils Less than 0.03 10x3/uL (0.0-0.7); %Basophils 0.2 % (0.0-1.0); %Eosinophils 0.2 % (0.0-10.0); %Lymphocytes 13.1 % (21.0-51.0); %Monocytes 5.8 % (0.0-10.0); %Neutrophils 80.4 % (42.0-75.0); Hematocrit 29.4 % (36.0-47.0); Hemoglobin 9.1 g/dL (12.0-16.0); Mean Corpuscular Hemoglobin 26.8 pg (27.0-31.0); Mean Corpuscular Volume 86.5 fL (78.0-98.0); Mean Platelet Volume 9.5 fL (7.4-10.4); Platelet Count 379 10x3/uL (130-400); RBC Distribution Width 14.6 % (11.5-14.5)
[2023-09-01 09:12] LABS: Acetaminophen Less than 10 mcg/mL (10.0-30.0); Salicylate Less than 8.0 mg/dL (15.0-30.0)
[2023-09-01 09:14] LABS: ALT (SGPT) 22 U/L (8-55); AST (SGOT) 43 U/L (5-34); Alkaline Phosphatase 82 U/L (40-110); Anion Gap 15 mmol/L (10-20); BUN (Urea Nitrogen) 18 mg/dL (7.0-18.7); Bilirubin, Total 0.3 mg/dL (0.2-1.2); Calc. Creatinine Clearance 0 mL/min (70-130); Calcium 8.4 mg/dL (7.8-10.44); Carbon Dioxide 19 mmol/L (22-29); Chloride 110 mmol/L (98-107); Estimated GFR 123; Globulin 3.4 g/dL (2.4-3.5); Glucose 82 mg/dL (70-105); Potassium 3.2 mmol/L (3.5-5.1); Protein, Total 7.4 g/dL (6.0-8.3); Sodium 141 mmol/L (136-145)
[2023-09-01] MEDS ORDERED: Bacitracin 1 PK ONE (09:32)
[2023-09-01] MEDS ORDERED: Potassium Chloride 20 MEQ TAB ONE (09:32)
== END 2023-09-01 09:37 | disposition home or self-care (01) ==
LOC: ERS 07:38
DX: S09.90XA Unspecified injury of head, initial encounter (principal); S01.01XA Laceration without foreign body of scalp, initial encounter; S50.01XA Contusion of right elbow, initial encounter; S80.12XA Contusion of left lower leg, initial encounter; S80.11XA Contusion of right lower leg, initial encounter; F10.129 Alcohol abuse with intoxication, unspecified; D64.9 Anemia, unspecified; E87.6 Hypokalemia; F17.290 Nicotine dependence, other tobacco product, uncomplicated; W50.0XXA Accidental hit or strike by another person, initial encounter; Z23 Encounter for immunization
CPT/HCPCS: 36415; 70450; 72125; 80053; 80307; 84702; 85025; 90471; 90715